=== PATIENT | female | born 1980 | race Two or more races ===

== ENCOUNTER 2016-11-15 13:19 | Emergency (ER) | payer BC ==
[2016-11-15 14:12] VITALS: BP 109/75
[2016-11-15] MEDS ORDERED: Ondansetron INJ* 2 MG/ML VIAL IV ONE (15:30)
[2016-11-15] MEDS ORDERED: Pantoprazole IV* 40 MG IV ONE (15:30)
[2016-11-15] MEDS ORDERED: Famotidine IV* 10 MG/ML 2 ML (20 mg) IV SLOW PU ONE (15:30)
--- NOTE | 2016-11-15 15:30 | ED ---
Abdominal Pain/Female - HPI Summary HPI Summary: Pt here w/ acute on chronic epigastric pain. She was dx'd w/ gastritis 10 years ago. Endoscope at that time was normal. She took zantac for years with good relief until sx worsened. 6 years ago, she had another endoscopy which revealed mild gastritis, neg ulcer, neg h. pylori. She was started on lansoprazole which worked well until the past few months. Her pain is returning in the epigastric area and goes through to her back. She is here today because she has been vomiting over the past week almost every time she eats or drinks. She has been sipping water the past 4 days w/ nausea. Last vomited yesterday. Has tried zantac and zofran but vomited. Was able to keep lansoprazole down but did not help pain. She denies use of NSAID's, acidic foods/beverages, smoking, drinking ETOH. She does enjoy spicy food. Currently, all food and beverages are causing her pain. She denies hematochezia, dark/tarry stools, hematemesis, throat pain, chest pain, SOB. 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) Pain Intensity: 0 Allergies/Adverse Reactions: Allergies Allergy/AdvReac Type Severity Reaction Status Date / Time Esomeprazole [From Nexium] Allergy Hives Verified 11/15/16 14:13 PMH/Surg Hx/FS Hx/Imm Hx Previously Healthy: Yes Endocrine/Hematology History: Denies: Hx Anticoagulant Therapy, Hx Blood Disorders, Hx Unexplained Bleeding GI History: Reports: Hx Gastroesophageal Reflux Disease Denies: Hx Cirrhosis, Hx Crohn's Disease, Hx Diverticulosis, Hx Gall Bladder Disease, Hx Gastrointestinal Bleed, Hx Hiatal Hernia, Hx Irritable Bowel Infectious Disease History: Yes Infectious Disease History: Denies: Traveled Outside the [place] in Last 30 Days - Family History Known Family History: Positive: None - Social History Lives: With Family Alcohol Use: None Hx Substance Use: No Substance Use Type: Reports: None Hx Tobacco Use: No Smoking Status (MU): Never Smoked Tobacco Review of Systems Negative: Fever, Chills Negative: Sore Throat Negative: Chest Pain Negative: Shortness Of Breath Positive: Abdominal Pain, Vomiting, Nausea. Negative: Diarrhea Positive: no symptoms reported Negative: Bruising Neurological: Negative Negative: Headache, Weakness, Paresthesia Psychological: Normal All Other Systems Reviewed And Are Negative: Yes Physical Exam Triage Information Reviewed: Yes Vital Signs On Initial Exam: Initial Vitals Temp Pulse Resp BP Pulse Ox 98.1 F 92 18 97/66 99 11/15/16 13:49 11/15/16 13:49 11/15/16 13:49 11/15/16 13:49 11/15/16 13:49 Vital Signs Reviewed: Yes Appearance: Positive: Well-Nourished - mild pallor, Pain Distress - mild Skin: Positive: Warm, Dry Head/Face: Positive: Normal Head/Face Inspection Eyes: Positive: Normal, EOMI, Conjunctiva Clear - anicteric sclera ENT: Positive: Normal ENT inspection, Hearing grossly normal, Pharynx normal - lips are somewhat dry Respiratory/Lung Sounds: Positive: Clear to Auscultation, Breath Sounds Present. Negative: Rales, Rhonchi, Wheezes Cardiovascular: Positive: Normal, RRR, Pulses are Symmetrical in both Upper and Lower Extremities, S1, S2. Negative: Murmur, Rub Abdomen Description: Positive: No Organomegaly, Soft, Other: - epigastric TTP - all other areas are soft and NTTP Bowel Sounds: Positive: Present Musculoskeletal: Positive: Normal, Strength/ROM Intact Neurological: Positive: Normal, Sensory/Motor Intact, Alert, Oriented to Person Place, Time, CN Intact II-III Psychiatric: Positive: Normal - Alayna Coma Scale Coma Scale Total: 15 Diagnostics - Vital Signs Vital Signs Temp Pulse Resp BP Pulse Ox 11/15/16 14:01 98.7 F 87 20 109/75 96 11/15/16 13:49 98.1 F 92 18 97/66 99 - Laboratory Result Diagrams: 11/15/16 15:45 11/15/16 15:45 Lab Statement: Any lab studies that have been ordered have been reviewed, and results considered in the medical decision making process. Re-Evaluation - Re-Evaluation First Eval Change: Improved - nausea and pain improved a great deal - pt smiling, laughing Abdominal Pain Fem Course/Dx - Course Course Of Treatment: Pt presents w/ epigastric pain, worsening over past few months and new onset vomiting past 1 week. Pain and nausea improved today w/ IVF , zofran, protonix and famotidine. She tolerated ice cream PO prior to d/c - this was offered as glucose was low on CMP. D/c'd home w/ PPI and H2 capri. Pt will be referred to GI within the next 2 weeks for follow-up (ie. endoscopy, med f/u, etc). Reviewed danger s/sx of when to return. Also reviewed bland diet which pt encouraged to eat until seen by GI for further guidance. - Diagnoses Provider Diagnoses: Gastritis Discharge - Discharge Plan Condition: Stable Disposition: HOME Prescriptions: Famotidine TAB* [Pepcid 20 MG TAB*] 40 mg PO BEDTIME #14 tab Ondansetron ODT TAB* [Zofran 4 MG Odt TAB*] 8 mg PO Q8H PRN #9 tab.odt PRN Reason: Nausea Pantoprazole TAB (NF) [Protonix TAB (NF)] 40 mg PO BID #28 tab Patient Education Materials: Gastritis (ED), Diet for Stomach Ulcers and Gastritis (ED) Referrals: Non Staff,Doctor [Primary Care Provider] - [facility] [place] PHYSICIAN REFERRAL [Outside] Jignesh Sawyer MD [Medical Doctor] - Additional Instructions: Follow-up with GI within next 2 weeks. Call Friday to schedule appointment. Establish with PCP for general medical care. A referral line has been provided for you today. Also call Friday to find a provider and schedule an appointment for new patient visit. Take medications as directed and avoid high risk foods, meds as described in handouts. *If you develop return of pain, bloody vomiting, bloody stool, fever, or intractable vomiting, hard abdomen, return to ED
[2016-11-15] MEDS ORDERED: Ondansetron INJ* 2 MG/ML VIAL ONE (15:31)
[2016-11-15] MEDS ORDERED: Pantoprazole IV* 40 MG ONE (15:31)
[2016-11-15] MEDS ORDERED: Famotidine IV* 10 MG/ML 2 ML (20 mg) ONE (15:31)
[2016-11-15] MEDS ORDERED: NS 0.9% 1000 ML* 1,000 ML IV ONE (15:32)
[2016-11-15 15:59] LABS: Hematocrit 36 % (35-47); Hemoglobin 12.1 g/dl (12.0-16.0); Mean Corpuscular HGB Conc 34 g/dl (31-36); Mean Corpuscular Hemoglobin 28 pg (27-31); Mean Corpuscular Volume 84 fL (80-97); Mean Platelet Volume 8 um3 (7.4-10.4); Red Blood Count 4.28 10^6/ul (4.0-5.4); Red Cell Distribution Width 14 % (10.5-15); White Blood Count 6.5 10^3/ul (3.5-10.8)
[2016-11-15 16:14] LABS: Albumin 4.2 g/dL (3.2-5.2); BUN/Creatinine Ratio 11.1 (8-20); C Reactive Protein 30.39 mg/L (< 5.00); EGFR Non-African American 105.8 (>60); Globulin 3.3 g/dL (2-4); Potassium 3.8 mmol/L (3.5-5.0); Total Bilirubin 0.9 mg/dL (0.2-1.0); Total Protein 7.5 g/dL (6.4-8.9)
--- NOTE | 2016-11-15 18:23 | ED ---
Janice, Beverley Rose, tioed for Edwardo Jerez MD on 11/15/16 at 1753 . Progress - Progress Note Progress Note: 17:52 - Dr. Jerez spoke with pt. She vomited after trying liquids but is now doing much better. She wants to go home; pt stable and cleared to leave with dx of gastroenteritis. Re-Evaluation - Re-Evaluation First Eval Change: Improved - nausea and pain improved a great deal -pt smiling Course/Dx - Course Course Of Treatment: Pt presents w/ epigastric pain, worsening over past few months and new onset vomiting past 1 week. Pain and nausea improved w/ IVF, zofran, protonix and famotidine. She tolerated ice cream PO prior to d/c as glucose was low on CMP. Pt will be referred to GI within the next 2 weeks for follow-up (ie. endoscopy, med f/u, etc). Reviewed danger s/sx of when to return. Also reviewed benjamin of bland diet until seen by GI for further guidance. - Diagnoses Provider Diagnoses: Gastritis The documentation as recorded by the Doctor evans Tahera accurately reflects the service I personally performed and the decisions made by me, Edwardo Jerez MD.
== END 2016-11-15 17:56 | disposition home or self-care (01) ==
LOC: ED 13:19
DX: K29.70 Gastritis, unspecified, without bleeding (principal)
CPT/HCPCS: 36415; 80053; 83605; 83690; 85025; 85610; 85730; 86140; 86703; 96365; 96375; 96376; 99283; J2405

== ENCOUNTER 2016-11-19 11:14 | Emergency (ER) | payer BC ==
[2016-11-19] MEDS: NS 0.9% 1000 ML* 1,000 ML IV ONE ×2 (11:53→12:58)
[2016-11-19 12:08] LABS: Hematocrit 36 % (35-47); Mean Corpuscular HGB Conc 33 g/dl (31-36); Mean Corpuscular Hemoglobin 28 pg (27-31); Mean Corpuscular Volume 84 fL (80-97); Mean Platelet Volume 8 um3 (7.4-10.4); Red Blood Count 4.31 10^6/ul (4.0-5.4); Red Cell Distribution Width 14 % (10.5-15); White Blood Count 6.2 10^3/ul (3.5-10.8)
[2016-11-19 12:27] LABS: Albumin 4.3 g/dL (3.2-5.2); BUN/Creatinine Ratio 12.9 (8-20); Calcium 9.1 mg/dL (8.6-10.3); EGFR African American 138.5 (>60); EGFR Non-African American 107.7 (>60); Potassium 3.6 mmol/L (3.5-5.0); Total Bilirubin 0.7 mg/dL (0.2-1.0); Total Protein 7.3 g/dL (6.4-8.9)
[2016-11-19] MEDS ORDERED: Ondansetron INJ* 2 MG/ML VIAL ONE (12:56)
[2016-11-19] MEDS ORDERED: Ondansetron INJ* 2 MG/ML VIAL IV ONE (12:57)
--- NOTE | 2016-11-19 13:16 | RAD ---
INDICATION: Vomiting. COMPARISON: There are no prior studies available for comparison. TECHNIQUE: Supine and upright views of the abdomen were obtained. FINDINGS: The small bowel and colon appear nondistended. No free intraperitoneal air is seen. There is a focal large peripherally calcified structure which projects over the pelvis centered to the right of the midline measuring 3.0 x 3.5 cm in size possibly representing a calcified leiomyoma. IMPRESSION: 1. NO EVIDENCE FOR OBSTRUCTION. 2. CALCIFICATION PROJECTS OVER THE PELVIS POSSIBLY REPRESENTING A CALCIFIED LEIOMYOMA.
[2016-11-19] MEDS ORDERED: Iohexol 300* (CONTRAST) 10 ML SDV IV ONE (14:16)
[2016-11-19 14:19] LABS: UR Preg Internal Control QC Line Present
[2016-11-19 14:21] LABS: Manual Entry Verification HAN0055
[2016-11-19 14:29] LABS: Urine Bacteria Absent (Absent); Urine Bilirubin Negative (Negative); Urine Glucose Negative (Negative); Urine Nitrite Negative (Negative)
--- NOTE | 2016-11-19 14:51 | RAD ---
CLINICAL HISTORY: Vomiting, weight loss COMPARISON: None TECHNIQUE: Multiple contiguous axial CT scans were obtained of the abdomen and pelvis after the administration of intravenous contrast. Coronal and sagittal multiplanar reformations are submitted for review. Oral contrast was administered. Delayed images were obtained through the abdomen and pelvis. FINDINGS: LUNG BASES: The lung bases are clear. LIVER: The liver is normal in shape, size, contour, and attenuation. BILE DUCTS: There is no intrahepatic or extrahepatic biliary dilatation. GALLBLADDER: The gallbladder is normal, without pericholecystic inflammatory change. PANCREAS: The pancreas is normal, without mass or ductal dilatation. SPLEEN: Normal in size and appearance. UPPER GI TRACT: Evaluation of the gastrointestinal tract is limited by incomplete gastric distention. The upper GI tract is unremarkable. SMALL BOWEL AND MESENTERY: The small bowel is normal in contour, course, and caliber. There is no obstruction or dilatation. COLON: The colon is normal in contour, course, caliber. There is no pericolonic inflammatory change. There is a tubular, vermiform, hollow viscus that is blind ending, and originates from the cecum, consistent with a normal appendix. There is no periappendiceal inflammatory change. ADRENALS: Normal bilaterally. KIDNEYS: The kidneys are normal in shape, size, contour, and axis. There is no hydronephrosis or nephrolithiasis. BLADDER: The bladder is smooth in contour. PELVIC ORGANS: There is a calcific uterine fibroid. AORTA: The aorta is normal. IVC: Unremarkable LYMPH NODES: There is no lymphadenopathy by size criteria. ABDOMINAL WALL: There is no evidence for abdominal wall hernia. BONES AND SOFT TISSUES: Unremarkable OTHER: None IMPRESSION: FIBROID UTERUS, OTHERWISE UNREMARKABLE CT OF THE ABDOMEN AND PELVIS
[2016-11-19 15:14] LABS: C Reactive Protein 13.59 mg/L (< 5.00)
[2016-11-19 16:43] VITALS: BP 111/68
--- NOTE | 2016-11-19 18:41 | ED ---
Ashley Camacho Anna, scribed for Roniti,Jamar Dee MD on 11/19/16 at 1129 . GI/ HPI - HPI Summary HPI Summary: Patient is a 36 y/o female coming to [facility] presenting with acute on chronic intermittent emesis that worsened one week ago. The emesis has been increasing in frequency over the last month, most acutely in the last week. The emesis is both food and liquids, including water. She has had little urination and one BM in the last week, which is unusual for her. She has no pain associated with the emesis. She has unintentionally lost 13 lbs in the last month, mostly in the last week. She has no nausea when she is not eating. The symptoms were not alleviated by the use of Zofran, Protonix, and Famotidine, which she has been taking as were prescribed when she was seen at [facility] four days ago. The patient was referred to a GI clinic and has scheduled an appointment as soon as was available, currently 35 days. Denies previous surgeries, HTN, DM. She has chronic gastritis and had endoscopies 15 years ago and 6 years ago, completed in [facility] with no acute findings other than mild gastritis and GERD. - History of Current Complaint Chief Complaint: EDGeneral Time Seen by Provider: 11/19/16 11:26 Stated Complaint: VOMITING, 13 POUNDS LOST IN A MONTH Hx Obtained From: Patient, Family/Security Lead - Accompanied by Onset/Duration: Started Weeks Ago, Still Present, Worse Since - one week ago Timing: Intermittent Severity: Worse Since: - one week ago Current Severity: Moderate Pain Intensity: 0 - /10 - Allergy/Home Medications Allergies/Adverse Reactions: Allergies Allergy/AdvReac Type Severity Reaction Status Date / Time Esomeprazole [From Nexium] Allergy Hives Verified 11/15/16 14:13 Home Medications: Home Medications Imiquimod [Zyclara Pump] 5 % TOPICAL .3 TIMES WEEKLY 11/19/16 [History Confirmed 11/19/16] PMH/Surg Hx/FS Hx/Imm Hx Endocrine/Hematology History: Denies: Hx Anticoagulant Therapy, Hx Blood Disorders, Hx Unexplained Bleeding GI History: Reports: Hx Gastroesophageal Reflux Disease, Other GI Disorders - chronic gastritis Denies: Hx Cirrhosis, Hx Crohn's Disease, Hx Diverticulosis, Hx Gall Bladder Disease, Hx Gastrointestinal Bleed, Hx Hiatal Hernia, Hx Irritable Bowel Infectious Disease History: Denies: Traveled Outside the [place] in Last 30 Days - Family History Known Family History: Negative: Cardiac Disease, Hypertension, Diabetes - Social History Lives: With Family Alcohol Use: None Hx Substance Use: No Substance Use Type: Reports: None Hx Tobacco Use: No Smoking Status (MU): Never Smoked Tobacco Review of Systems Constitutional: Other - unintentional weight loss Positive: Sore Throat Positive: Vomiting. Negative: Abdominal Pain All Other Systems Reviewed And Are Negative: Yes Physical Exam Triage Information Reviewed: Yes Vital Signs On Initial Exam: Initial Vitals Temp Pulse Resp BP Pulse Ox 97.7 F 85 16 117/77 100 11/19/16 11:18 11/19/16 11:18 11/19/16 11:18 11/19/16 11:18 11/19/16 11:18 Vital Signs Reviewed: Yes Appearance: Positive: Well-Appearing, No Pain Distress, Well-Nourished Skin: Positive: Warm, Skin Color Reflects Adequate Perfusion, Dry Head/Face: Positive: Normal Head/Face Inspection Eyes: Positive: EOMI, YIMI, Conjunctiva Clear ENT: Positive: Hearing grossly normal, Pharynx normal Neck: Positive: Supple, Nontender Respiratory/Lung Sounds: Positive: Clear to Auscultation, Breath Sounds Present. Negative: Rales, Rhonchi, Wheezes Cardiovascular: Positive: RRR. Negative: Murmur, Rub Abdomen Description: Positive: Nontender, No Organomegaly, Soft. Negative: Distended, Guarding Bowel Sounds: Positive: Present Musculoskeletal: Positive: Strength/ROM Intact Neurological: Positive: Sensory/Motor Intact, Alert, Oriented to Person Place, Time, Normal Gait. Negative: Cerebellar Dysfunction Psychiatric: Positive: Affect/Mood Appropriate Diagnostics - Vital Signs Vital Signs Temp Pulse Resp BP Pulse Ox 11/19/16 11:18 97.7 F 85 16 117/77 100 - Laboratory Lab Results: Lab Results 11/19/16 11/19/16 11/19/16 Range/Units 11:55 11:55 11:55 WBC 6.2 (3.5-10.8) 10^3/ul RBC 4.31 (4.0-5.4) 10^6/ul Hgb 12.0 (12.0-16.0) g/dl Hct 36 (35-47) % MCV 84 (80-97) fL MCH 28 (27-31) pg MCHC 33 (31-36) g/dl RDW 14 (10.5-15) % Plt Count 242 (150-450) 10^3/ul MPV 8 (7.4-10.4) um3 Sodium 136 (133-145) mmol/L Potassium 3.6 (3.5-5.0) mmol/L Chloride 105 (101-111) mmol/L Carbon Dioxide 25 (22-32) mmol/L Anion Gap 6 (2-11) mmol/L BUN 8 (6-24) mg/dL Creatinine 0.62 (0.51-0.95) mg/dL Est GFR ( Amer) 138.5 (>60) Est GFR (Non-Af Amer) 107.7 (>60) BUN/Creatinine Ratio 12.9 (8-20) Glucose 92 (70-100) mg/dL Lactic Acid 0.6 (0.5-2.0) mmol/L Calcium 9.1 (8.6-10.3) mg/dL Total Bilirubin 0.70 (0.2-1.0) mg/dL AST 12 L (13-39) U/L ALT 12 (7-52) U/L Alkaline Phosphatase 55 (34-104) U/L C-Reactive Protein 13.59 H (< 5.00) mg/L Total Protein 7.3 (6.4-8.9) g/dL Albumin 4.3 (3.2-5.2) g/dL Globulin 3.0 (2-4) g/dL Albumin/Globulin Ratio 1.4 (1-3) Lipase 18 (11.0-82.0) U/L Urine Color Urine Appearance Urine pH (5-9) Ur Specific Sidney (1.010-1.030) Urine Protein (Negative) Urine Ketones (Negative) Urine Blood (Negative) Urine Nitrate (Negative) Urine Bilirubin (Negative) Urine Urobilinogen (Negative) Ur Leukocyte Esterase (Negative) Urine WBC (Auto) (Absent) Urine RBC (Auto) (Absent) Ur Squamous Epith Cells (Absent) Urine Bacteria (Absent) Urine Glucose (Negative) Urine Ascorbic Acid Urine Test (Negative) 11/19/16 Range/Units 14:05 WBC (3.5-10.8) 10^3/ul RBC (4.0-5.4) 10^6/ul Hgb (12.0-16.0) g/dl Hct (35-47) % MCV (80-97) fL MCH (27-31) pg MCHC (31-36) g/dl RDW (10.5-15) % Plt Count (150-450) 10^3/ul MPV (7.4-10.4) um3 Sodium (133-145) mmol/L Potassium (3.5-5.0) mmol/L Chloride (101-111) mmol/L Carbon Dioxide (22-32) mmol/L Anion Gap (2-11) mmol/L BUN (6-24) mg/dL Creatinine (0.51-0.95) mg/dL Est GFR ( Amer) (>60) Est GFR (Non-Af Amer) (>60) BUN/Creatinine Ratio (8-20) Glucose (70-100) mg/dL Lactic Acid (0.5-2.0) mmol/L Calcium (8.6-10.3) mg/dL Total Bilirubin (0.2-1.0) mg/dL AST (13-39) U/L ALT (7-52) U/L Alkaline Phosphatase (34-104) U/L C-Reactive Protein (< 5.00) mg/L Total Protein (6.4-8.9) g/dL Albumin (3.2-5.2) g/dL Globulin (2-4) g/dL Albumin/Globulin Ratio (1-3) Lipase (11.0-82.0) U/L Urine Color Straw Urine Appearance Clear Urine pH 7.0 (5-9) Ur Specific Sidney 1.003 L (1.010-1.030) Urine Protein Negative (Negative) Urine Ketones Trace H (Negative) Urine Blood 1+ H (Negative) Urine Nitrate Negative (Negative) Urine Bilirubin Negative (Negative) Urine Urobilinogen Negative (Negative) Ur Leukocyte Esterase Negative (Negative) Urine WBC (Auto) Absent (Absent) Urine RBC (Auto) 1+(3-5/hpf) H (Absent) Ur Squamous Epith Cells Present H (Absent) Urine Bacteria Absent (Absent) Urine Glucose Negative (Negative) Urine Ascorbic Acid Not Reportable Urine Test Negative (Negative) Result Diagrams: 11/19/16 11:55 11/19/16 11:55 Lab Statement: Any lab studies that have been ordered have been reviewed, and results considered in the medical decision making process. - Radiology abd XR Xray Interpretation: Positive (See Comments) Radiology Interpretation Completed By: Radiologist - IMPRESSION: 1. NO EVIDENCE FOR OBSTRUCTION. 2. CALCIFICATION PROJECTS OVER THE PELVIS POSSIBLY REPRESENTING A CALCIFIED LEIOMYOMA. - CT CT abd/pel CT Interpretation: Positive (See Comments) CT Interpretation Completed By: Radiologist - IMPRESSION: FIBROID UTERUS, OTHERWISE UNREMARKABLE CT OF THE ABDOMEN AND PELVIS Re-Evaluation - Re-Evaluation First Eval Re-Evaluation Time: 12:28 Change: Unchanged Comment: Discussed plan for imaging following conversation with Dr. Pool. Patient and family are agreeable with plan. GIGU Course/Dx - Course Assessment/Plan: Patient is a 36 y/o female coming to [facility] presenting with acute on chronic intermittent emesis that began one week ago. The emesis has been increasing in frequency over the last month, most acutely in the last week. The emesis is exacerbated by food and liquids, including water. She has had little urination and one BM in the last week, which is unusual for her. She has a mild sore throat accompanied by some nasal congestion. She has no pain associated with the emesis. She has unintentionally lost 13 lbs in the last month, mostly in the last week. She has no nausea when she is not eating. The symptoms were not alleviated by the use of Zofran, Protonix, and Famotidine, which she has been taking as were prescribed when she was seen at [facility] four days ago. The patient was referred to a GI clinic and has scheduled an appointment as soon as was available, currently in 35 days. Denies previous surgeries, HTN, DM. She has chronic gastritis and had endoscopies 15 years ago and 6 years ago, completed in [place] with no acute findings other than mild gastritis. Her OBGYN raised the concern of endometriosis because of a history of severely painful periods, which has not been investigated at this time. Patient was given fluids and Famotidine in the ED course. Discussed patient care with Dr. Pool (GI doctor), who recommended XR with two views and CT. Labs WNL except for CRP of 13.59. Abd XR reveals no evidence for obstruction but calcification projecting over the pelvis that possibly represents a calcified leiomyoma. CT reveals uterine fibroid but is otherwise unremarkable. Dr. Pool will place orders for labs to be drawn 11/22/2016. Patient will be discharged home with follow up from Dr. Pool and Dr. Moon. - Diagnoses Provider Diagnoses: Nausea & vomiting, GERD (gastroesophageal reflux disease) - Physician Notifications Discussed Care Of Patient With: Dr. Sawyer' office (GI doctor) at 1145. They recommend discussing the case with Dr. Pool, who is currently in the endoscopy suite. Dr. Pool (GI doctor) at 1215. Dr. Pool recommends two- view XR of abd in addition to CT with IV and oral contrast. Will intervene pending images. Dr. Pool (GI doctor) at 1446. Updated regarding XR results. Pending CT results. Will add tests for lipase and CRP. Dr. Pool (GI doctor) at 1550. He was able to see the patient and discuss care. He will place orders for labs to be drawn 11/22/2016. Patient will be discharged home. Discharge - Discharge Plan Condition: Stable Disposition: HOME Patient Education Materials: Acute Nausea and Vomiting (ED) Referrals: Lillie Moon MD [Medical Doctor] - Quique Pool MD [Medical Doctor] - Additional Instructions: Follow up for labs on 11/22/2016. Return to the Emergency Department for new or worsening symptoms. The documentation as recorded by the Ashley evans Anna accurately reflects the service I personally performed and the decisions made by , Jamar Giang MD.
--- NOTE | 2016-11-19 21:56 | CONS ---
GASTROENTEROLOGY CONSULT: DATE: 11/19/16 REFERRING PHYSICIANS: [facility] Attending, Lillie Moon CMA REASON FOR CONSULT: Repeated nausea and vomiting in a woman with a history of gastrointestinal distress going back at least to 1999 when she was living in [place]. 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 The history is given predominantly by her , though the patient listens and sometimes will answer in short phrases as she appears to understand Syriac fairly well, but prefers to have her do the actual speaking. This winter she apparently has been developing nausea and vomiting about an hour after meals, sometimes two. She may develop a little bit of epigastric pain with this. She actually has not had any pain in the last few days, although the vomiting has continued. Postprandial distress and vomiting seemed to start about a month ago and became more acute about a week ago. She has a long-standing pattern of getting some epigastric pain from time to time for which she will take a Zantac or Prilosec, typically as a single dose. There is no particular correlation with that. She has had stomach symptoms for many years. In 1999, in [place], while her was in medical school, she had pain and some vomiting. Upper endoscopy at that time was said to be normal. Her cannot give a specific diagnosis but she was treated with Zantac and the symptom faded. In 2010, with similar symptoms, upper endoscopy in [facility] showed mild gastritis and helicobacter assessment was negative. She was treated with Protonix, again the symptom fading. Following that, she is described as being on "PPIs off and on for a while." It is not clear how that may differ from the more recent description of once a month. She came to the emergency room on November 15 with these symptoms and at that time, her CBC was normal with hemoglobin 12.1, hematocrit 36, white count 6.5, BUN 8, creatinine 0.7. She was sent home on Protonix on a regular basis and she does take it in the morning. Symptoms persisted. They scheduled an outpatient GI evaluation, which was not due to take place for a month. She came to the emergency room today. Again, vital signs were normal, labs normal, BUN again under 10, creatinine unchanged. CRP which had been elevated at 30 was now 13. There has not been any diarrhea, fever or rectal bleeding. She had a herpes labialis outbreak a month or 6 weeks ago, which she has had before. Her wondered about that extending into the esophagus. She is just pending a 6-day typical menstrual cycle today. She had a test yesterday, her brought her, and that was negative. She is not taking any supplements, vitamins, etc. She took Aleve a couple of months ago for a day or two for some joint pain, but thought she had epigastric pain for a day and gave that up. There is no family history of gastrointestinal problems. She has never had any surgery. PAST MEDICAL HISTORY: 1. Infertility workup - 2 daughters via IVF, ages 11 and 4. 2. Factor V Leiden - diagnosed with the infertility workup. She has never had any thromboembolic phenomena and there is no history of that in the family. MEDICATIONS: At home, just what was prescribed in the ER 4d ago, pantoprazole 40, famotidine 20, Zofran 4. 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 He is now with [employer] in [place] ([phone], Talat Davey ). She has 2 daughters, 2005 and 2012, said to be healthy. A DARIUSZ is training in FP in [place]. REVIEW OF SYSTEMS: No history of cardiopulmonary disease, palpitations, syncope. She did have some gastrointestinal upset about a month ago for 48 hrs that was said to have gone through the whole family. There is no history of headaches, skin disorder, rash, or recent fracture. PHYSICAL EXAM: She is a healthy-appearing young woman, in a gurney in the emergency room wearing a headscarf. She appears quite calm, shy, smiling somewhat nervously. HEENT exam in a limited basis is normal. She has no adenopathy. She was examined with her in the room ( after permission) and a nurse in the room. Her lungs are clear and heart sounds are regular. The abdomen is symmetric without scars, normal bowel sounds, nondistended, soft , and nontender. Extremities show no edema. Neurologic is grossly nonfocal. DIAGNOSTIC STUDIES: Radiologic studies - two-views of the abdomen unremarkable. CT scan - with 2 cups of contrast, which had gone through to the colon. Per nursing report, contrast was ingested readily and was not vomited. Radiologic report is benign, apart from uterine fibroids. On review, the pancreas does indeed appear unremarkable with a nondilated duct. Stomach is nondilated. IMPRESSION: This 36-year-old woman with many years of dyspeptic-type gastrointestinal distress manifested mostly by vomiting with some component of epigastric distress probably has a background of being predisposed to gastroesophageal reflux disease with flares of symptomatology brought on by other varied illnesses. At this time, it is unclear what the current flare is stimulated by. The CRP was elevated, but is now lower. 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 There is no obvious stressor; or the patient does not mention any in an interview that is provided through her . She has plans to get a primary physician and identified Dr. Moon by name and this information will be forwarded to her as definitive management of dyspepsia frequently requires an in-depth knowledge of the patient's circumstances. For the moment she is encouraged to take Protonix in AM and eat small low fat meals 5-6 a day. [id number]/[facility] #: [id number] THA
== END 2016-11-19 16:42 | disposition home or self-care (01) ==
LOC: ED 11:14
DX: R11.2 Nausea with vomiting, unspecified (principal); K21.9 Gastro-esophageal reflux disease without esophagitis; D25.9 Leiomyoma of uterus, unspecified; K29.70 Gastritis, unspecified, without bleeding
CPT/HCPCS: 36415; 74020; 74177; 80053; 81003; 81015; 81025; 83605; 83690; 85027; 86140; 96361; 96374; 96375; 99283; J2405; Q9967

== ENCOUNTER 2017-12-19 10:33 | Emergency (ER) | payer BC ==
--- NOTE | 2017-12-19 10:39 | UC ---
Lower Extremity/Ankle HPI - HPI Summary HPI Summary: 37 yo female presents accompanied by with complaints of left knee pain and cramping that began yesterday morning. Seems worse today. Pt tells me that her sisters have been dx'd with Factor 5 and she is worried about a blood clot. She is able to bear weight, but has significant pain. She is also a practicing anabaptism and ramadan started a few days ago - admits that she has not been drinking enough water to prepare her body for the fast. Denies numbness or tingling or injury. - History of Current Complaint Stated Complaint: LEG PAIN Time Seen by Provider: 12/19/17 10:39 Hx Obtained From: Patient Onset/Duration: Sudden Onset Severity Initially: Moderate Severity Currently: Moderate Pain Intensity: 7 Pain Scale Used: 0-10 Numeric Aggravating Factor(s): Standing, Ambulation Alleviating Factor(s): Rest, Elevation Able to Bear Weight: Yes - Allergies/Home Medications Allergies/Adverse Reactions: Allergies Allergy/AdvReac Type Severity Reaction Status Date / Time esomeprazole [From Nexium] Allergy Shortness Verified 12/19/17 10:41 of Breath Home Medications: Home Medications NK [No Home Medications Reported] 12/19/17 [History Confirmed 12/19/17] PMH/Surg Hx/FS Hx/Imm Hx - Additional Past Medical History Additional PMH: None Previously Healthy: Yes GI/ History: Gastroesophageal Reflux Other History Of: Negative For: Anticoagulant Therapy - Surgical History Surgical History: None - Family History Known Family History: Positive: None Negative: Cardiac Disease, Hypertension, Diabetes - Social History Lives: With Family Alcohol Use: None Substance Use Type: None Smoking Status (MU): Never Smoked Tobacco Review of Systems Constitutional: Negative Skin: Negative Respiratory: Negative Cardiovascular: Negative Gastrointestinal: Negative Neurovascular: Negative Musculoskeletal: Other: - Left posterior knee pain Neurological: Negative Psychological: Negative All Other Systems Reviewed And Are Negative: Yes Physical Exam - Summary Physical Exam Summary: GENERAL: NAD. WDWN. No pain distress. SKIN: No rashes, sores, lesions, or open wounds. NECK: Supple. Nontender. No lymphadenopathy. CHEST: No accessory muscle use. Breathing comfortably and in no distress. CV: RRR. Without m/r/g. Pulses intact popliteal, PT, and DP. Brisk cap refill. MSK: Left knee: Mild posterior TTP. Pain posterior with full extension. Strength 5/5. No edema or obvious bony deformities. No patella apprehension. Negative Clay, A/P drawer, Janes, and varus/valgus stress. Negative Nehemias sign. LEFT CALF: NTTP. No edema or masses. NEURO: Alert. Sensations intact and symmetric B/L LEs PSYCH: Age appropriate behavior. Triage Information Reviewed: Yes Lower Extremity Course/Dx - Course Course Of Treatment: US: IMPRESSION: 1. NO LEFT LOWER EXTREMITY DEEP VEIN THROMBOSIS. 2. ESPINOZA'S CYST. Suspect muscle cramp due to decreased fluid intake and restoration fasting. Espinoza's cyst could also play a role in her discomfort. - Differential Dx/Diagnosis Provider Diagnoses: Muscle cramp left leg. Espinoza's cyst left knee Discharge - Sign-Out/Discharge Documenting (check all that apply): Discharge/Admit/Transfer - Discharge Plan Condition: Stable Disposition: HOME Patient Education Materials: Bakers Cyst (ED) Referrals: Lillie Moon MD [Primary Care Provider] - Batsheva Corona MD [Medical Doctor] - If Needed Additional Instructions: If you develop a fever, shortness of breath, chest pain, new or worsening symptoms - please call your PCP or go to the ED. 1) May take ibuprofen or tylenol every 6-8 hours as needed for pain 2) Keep well hydrated! - Billing Disposition and Condition Condition: STABLE Disposition: HOME
[2017-12-19 10:40] VITALS: BP 104/71
--- NOTE | 2017-12-19 11:39 | RAD ---
HISTORY: Posterior knee pain, family history of cardiomegaly COMPARISONS: None relevant TECHNIQUE: Multiple transverse and longitudinal ultrasound images were obtained of the left lower extremity from the level of the common femoral vein inferiorly through to the infrapopliteal veins using grayscale, color Doppler, and spectral Doppler imaging with and without compression and with augmentation. Comparison images were obtained of the contralateral common femoral vein. FINDINGS: VEINS: The venous system of the left lower extremity is compressible throughout its course, with normal flow on color Doppler imaging and normal response to augmentation on spectral Doppler imaging. SOFT TISSUES: Unremarkable. OTHER FINDINGS: There is a complex fluid collection in the popliteal fossa measuring 2.4 x 0.9 x 1.3 cm in size. IMPRESSION: 1. NO LEFT LOWER EXTREMITY DEEP VEIN THROMBOSIS. 2. MCGARRY'S CYST
== END 2017-12-19 11:55 | disposition home or self-care (01) ==
LOC: UCEAST 10:33
DX: R25.2 Cramp and spasm (principal); M71.21 Synovial cyst of popliteal space [Baker], right knee; Z88.8 Allergy status to other drugs, medicaments and biological substances
CPT/HCPCS: 99211; G0463

== ENCOUNTER 2019-10-12 09:05 | Emergency (ER) | payer BC ==
--- OUTSIDE RECORDS SUMMARY | 2019-10-12 09:13 | XMS REPORT | Continuity of Care Document ---
:1980 External Reference #:[id number] Author Name Zenaida Vidales O.D. Address [address] [address] Care Team Providers Name Role Phone Lillie Moon M.D. 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 Onset: 09/24/2019 Hereditary retinal dystrophy Zenaida Vidales O.D. Onset: 09/24/2019 Social History Type Date Description Comments Sex Unknown ETOH Use Denies alcohol use Recreational Drug Use Denies Drug Use Tobacco Use Start: Unknown Patient has never smoked Smoking Status Reviewed: 09/24/19 Patient has never smoked Allergies, Adverse Reactions, Alerts Active Allergies Reaction Severity Comments Date Nexium 09/24/2019 Inactive Allergies NKDA 09/24/2019 Medications Active Medications SIG Qnty Indications Ordering Provider Date Clindamycin Talat Hall M.D. 300mg Capsules Immunizations Description No Information Available Vital Signs Description No Information Available Results Description No Information Available Procedures Description No Information Available Medical Devices Description No Information Available Encounters Description No Information Available Assessments Date Code Description Provider 09/24/2019 H52.223 Regular astigmatism, bilateral Zenaida Vidales O.D. 09/24/2019 H35.50 Unspecified hereditary retinal dystrophy Zenaida Vidales O.D. Plan of Treatment 09/24/2019 - Zenaida Vidales O.D.H52.223 Regular astigmatism, bilateralComments: Smoking can increase the risk of developing or worsening any eye related disease , as well as affect your overall health. If you are a smoker, we strongly recommend that you quit.If you are not a smoker, we strongly recommend that you do not start. Astigmatism is a common vision condition that happens when a person's cornea is not symmetrical. Dr. Vidales has given you a prescription to correct for this.Follow up:1 year You can expect to have your eyes dilated at your next visit. If Dr. Vidales orders any additional testing, it may require extra time. We recommend that you bring sunglasses, as dilation drops often make you light sensitive until they wear off. We always recommend you bring someone to drive you home if you are uncomfortable driving with your eyes dilated. If you have any questions before your next visit, feel free to call our office at .h35.50 Unspecified hereditary retinal dystrophyFollow up:1 month VF 30-2 Functional Status Description No Information Available Mental Status Description No Information Available Referrals Description No Information Available
--- NOTE | 2019-10-12 11:05 | UC ---
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 Pain in Left back as well. No vag d/c, bleeding. No fever /chills. No rash. No dysuria / freq / urg No bowel concerns. Couldn't sleep last night d/t pain. - History of Current Complaint Chief Complaint: UCBackPain Stated Complaint: BACK PAIN Time Seen by Provider: 10/12/19 11:04 Hx Obtained From: Patient Hx Last Menstrual Period: 09/24/19 Pain Intensity: 4 - Allergy/Home Medications Allergies/Adverse Reactions: Allergies Allergy/AdvReac Type Severity Reaction Status Date / Time esomeprazole [From Nexium] Allergy Shortness Verified 10/12/19 09:22 of Breath Home Medications: Home Medications Docosanol 10%* [Abreva 10%*] 1 applic TOPICAL 5ID 7 Days #1 tube 10/12/19 [Rx] PMH/Surg Hx/FS Hx/Imm Hx Previously Healthy: Yes - see hpi Other History Of: Negative For: Anticoagulant Therapy - Surgical History Surgical History: None Surgery Procedure, Year, and Place: DENIES - Family History Known Family History: Positive: None Negative: Cardiac Disease, Hypertension, Diabetes - Social History Alcohol Use: None Substance Use Type: None Smoking Status (MU): Never Smoked Tobacco Review of Systems All Other Systems Reviewed And Are Negative: Yes Constitutional: Positive: Negative Skin: Positive: Negative Eyes: Positive: Negative ENT: Positive: Negative Respiratory: Positive: Negative Cardiovascular: Positive: Negative Gastrointestinal: Positive: Other - see hpi Genitourinary: Positive: Other - see hpi Motor: Positive: Negative Neurovascular: Positive: Negative Musculoskeletal: Positive: Negative Neurological/Mental Status: Positive: Negative Psychological: Positive: Negative Is Patient Immunocompromised?: No Physical Exam Triage Information Reviewed: Yes Appearance: Well-Nourished - sitting up, able to walk, but looks uncomfortable Vital Signs: Initial Vital Signs Temp 98.8 F 10/12/19 09:19 Pulse 75 10/12/19 09:19 Resp 16 10/12/19 09:19 BP 105/70 10/12/19 09:19 Pulse Ox 100 10/12/19 09:19 Vital Signs Reviewed: Yes Eye Exam: Normal ENT Exam: Normal Neck exam: Normal Respiratory Exam: Normal Respiratory: Positive: Chest non-tender, Lungs clear, Normal breath sounds, No respiratory distress, No accessory muscle use Cardiovascular Exam: Normal Cardiovascular: Positive: RRR, Pulses Normal, Brisk Capillary Refill Abdominal Exam: Other - + tender back, flank, and pelvis. No directly reproducible with pressure. abd / pelvis not acute. + bs. Musculoskeletal Exam: Normal Neurological Exam: Normal - nonfocal Psychological Exam: Normal - nad Skin Exam: Normal - no visible or reported rash nondiaphoretic Course/Dx - Course Course Of Treatment: Declines analgesia, took ibuprofen last night. Urine dip noted. Trace L est. UCG neg 12:30 pending u/s report 1:10 reviewed u/s report with Ms. Ramirez. See Foremost for details. 1. Fibroid uterus. 2. echogenic focus of he right ovary measuring 0.7cm, the differential includes a small dermoid cyst. 3. involuting cyst of the left ovary 4. no sonographic features of torsion, please note that partial or intermittent torsion may be sonographically normal Still has a great deal of pain. Sitting up but looks uncomfortable. Diff dx includes abd / renal / other. urine dip neg blood. Will benefit from further evaluation and treatment. Recommend ED. I spoke with Ms. Ramirez, and per her request, I spoke with her (who is a physician) over the phone. 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 Aware to call 911 if worse or new problems. Questions as posed answered to the best of my ability. - Diagnoses Provider Diagnosis: Flank pain, Abdominal pain Discharge ED - Sign-Out/Discharge Documenting (check all that apply): Patient Departure All imaging exams completed and their final reports reviewed: Yes - Discharge Plan Condition: Stable Disposition: HOME-RECOMMEND TO ED Prescriptions: Docosanol 10%* [Abreva 10%*] 1 applic TOPICAL 5ID 7 Days #1 tube Patient Education Materials: Acute Abdominal Pain (DC), Flank Pain (ED) Referrals: Lillie Moon MD [Primary Care Provider] - Additional Instructions: Please go to the Emergency Department. Stop and call 911 if problems in the meantime. Please do not eat prior to going to the Emergency Department. - Billing Disposition and Condition Condition: STABLE Disposition: Home-Recommend to ED
[2019-10-12 12:32] VITALS: BP 114/74
== END 2019-10-12 13:43 | disposition home health service (06) ==
LOC: UCEAST 09:05
DX: R10.9 Unspecified abdominal pain (principal); D25.9 Leiomyoma of uterus, unspecified; N83.292 Other ovarian cyst, left side; Z88.8 Allergy status to other drugs, medicaments and biological substances
CPT/HCPCS: 76830; 81003; 84702; 87086; 99212; G0463

== ENCOUNTER 2019-10-12 17:23 | Emergency (ER) | payer BC ==
[2019-10-12] MEDS ORDERED: NS 0.9% 1000 ML** 1,000 ML IV ONE (20:55)
[2019-10-12] MEDS ORDERED: Ondansetron INJ* 2 MG/ML VIAL IV ONE (20:55)
[2019-10-12] MEDS ORDERED: Ketorolac INJ* 15 MG/ML 1 ML VIAL IV ONE (20:55)
[2019-10-12 21:12] LABS: ABS Eosinophils 0.1 10^3/ul (0-0.6); ABS Lymphocytes 2.5 10^3/ul (1.0-4.8); ABS Monocytes 0.3 10^3/ul (0-0.8); ABS Neutrophils 3.7 10^3/ul (1.5-7.7); Hematocrit 35 % (35-47); Hemoglobin 12.4 g/dL (12.0-16.0); Lymphocyte % 37.7 %; Mean Corpuscular HGB Conc 36 g/dL (31-36); Mean Corpuscular Hemoglobin 30 pg (27-31); Mean Corpuscular Volume 85 fL (80-97); Mean Platelet Volume 7.5 fL (7.4-10.4); Platelet Count 244 10^3/uL (150-450); Red Blood Count 4.09 10^6 /uL (3.70-4.87); Red Cell Distribution Width 13 % (10-15); White Blood Count 6.7 10^3/uL (3.5-10.8)
[2019-10-12 21:30] LABS: ALT 14 U/L (7-52); AST 11 U/L (13-39); Albumin 4.7 g/dL (3.2-5.2); Albumin/Globulin Ratio 1.6 (1-3); Alkaline Phosphatase 57 U/L (34-104); Anion Gap 8 mmol/L (2-11); BUN/Creatinine Ratio 15.2 (8-20); Blood Urea Nitrogen 10 mg/dL (6-24); C Reactive Protein 14.32 mg/L (<8.01); CO2 Carbon Dioxide 26 mmol/L (22-32); Chloride 102 mmol/L (101-111); EGFR African American 119.4 (>60); EGFR Non-African American 98.7 (>60); Glucose 81 mg/dL (70-100); Potassium 3.6 mmol/L (3.5-5.0); Sodium 136 mmol/L (135-145); Total Protein 7.7 g/dL (6.4-8.9)
[2019-10-12 21:35] LABS: HCG Pregnancy < 0.60 mIU/mL
--- NOTE | 2019-10-12 21:38 | ED ---
GI/ HPI - HPI Summary HPI Summary: Patient is a 39 y/o F presenting to [facility] with complaints of left lower back pain, left flank pain and LLQ. She states that the pain onset around 10/07/19. Pain was initially located at LLQ but has since moved to flank and lower back. She reports the pain has been worsening since onset and notes difficulty lying down, sitting, and sleeping secondary to pain. She has been taking ibuprofen without relief. She denies fever, N/V/D. Patient was evaluated at , US was done and the patient was advised to come to [facility] for CT abd/pel. She reports Hx of PCOS. LNMP was 09/24/19. She denies other PMHx, PSHx. Patient is a non- smoker and denies alcohol and substance usage. Home medications and allergies are reviewed. - History of Current Complaint Chief Complaint: EDFlankPain Time Seen by Provider: 10/12/19 20:54 Stated Complaint: BACK/ABD PAIN PER PT Hx Obtained From: Patient Hx Last Menstrual Period: 09/24/19 Onset/Duration: Started Days Ago, Still Present Timing: Lasting Days Current Severity: Moderate Pain Intensity: 5 Location of Pain: LLQ, Flank, Other - back Associated Signs and Symptoms: Positive: Back Pain, Flank Pain, Abdominal Pain. Negative: Nausea, Vomiting, Diarrhea, Fever - Allergy/Home Medications Allergies/Adverse Reactions: Allergies Allergy/AdvReac Type Severity Reaction Status Date / Time esomeprazole [From Nexium] Allergy Shortness Verified 10/12/19 17:31 of Breath Home Medications: Home Medications NK [No Home Medications Reported] 10/12/19 [History Confirmed 10/12/19] PMH/Surg Hx/FS Hx/Imm Hx Endocrine/Hematology History: Denies: Hx Anticoagulant Therapy, Hx Blood Disorders, Hx Diabetes, Hx Thyroid Disease, Hx Unexplained Bleeding Cardiovascular History: Denies: Hx Hypertension Respiratory History: Denies: Hx Asthma, Hx Chronic Obstructive Pulmonary Disease (COPD) GI History: Reports: Hx Gastroesophageal Reflux Disease, Other GI Disorders - chronic gastritis Denies: Hx Cirrhosis, Hx Crohn's Disease, Hx Diverticulosis, Hx Gall Bladder Disease, Hx Gastrointestinal Bleed, Hx Hiatal Hernia, Hx Irritable Bowel, Hx Ulcer - Surgical History Surgery Procedure, Year, and Place: DENIES Infectious Disease History: No Infectious Disease History: Denies: Hx Hepatitis, Hx Human Immunodeficiency Virus (HIV), Traveled Outside the [place] in Last 30 Days - Family History Known Family History: Negative: Cardiac Disease, Hypertension, Diabetes - Social History Alcohol Use: None Hx Substance Use: No Substance Use Type: Reports: None Hx Tobacco Use: No Smoking Status (MU): Never Smoked Tobacco Review of Systems - ROS Summary Review of Systems Summary: Home Medications Medication Instructions Recorded Confirmed Type NK [No Home Medications Reported] 10/12/19 10/12/19 History Negative: Fever Positive: Abdominal Pain. Negative: Vomiting, Diarrhea, Nausea Positive: flank pain Positive: Myalgia - lower left back pain All Other Systems Reviewed And Are Negative: Yes Physical Exam - Summary Physical Exam Summary: General: Well-developed, Well-nourished female. Moderate discomfort at rest. HEENT: Normocephalic, Atraumatic. Eyes: Conjuctiva normal, PERRL. Oropharynx: Clear, mucous membranes moist, (-) exudates. Neck: Soft, FROM, (-) lymphadenopathy, (-) thyromegaly, (-) JVD. Cardiovascular: Normal sinus rhythm, (-) murmur. Lungs: Clear to auscultation bilaterally (-) wheezes, (-) rales, (-) rhonchi. Abdomen: Soft, LLQ tenderness, non-distended, (-) organomegaly, normal bowel sounds. Back: (+) left CVA tenderness Extremities: No edema. Skin: Warm, dry, (-) rash. Neuro: Alert and oriented x3, moves all extremities equally. No ataxia. No gait disturbance. No sensory deficit. Normal strength, normal sensation. Psychiatric: Mood normal, affect normal Triage Information Reviewed: Yes Vital Signs On Initial Exam: Initial Vitals Temp Pulse Resp BP Pulse Ox 97.8 F 80 18 132/84 98 10/12/19 17:27 10/12/19 17:27 10/12/19 17:27 10/12/19 17:27 10/12/19 17:27 Vital Signs Reviewed: Yes Procedures - Sedation Patient Received Moderate/Deep Sedation with Procedure: No Diagnostics - Vital Signs Vital Signs Temp Pulse Resp BP Pulse Ox 10/12/19 19:39 99.1 F 86 18 128/81 100 10/12/19 17:27 97.8 F 80 18 132/84 98 - Laboratory Lab Results: Lab Results 10/12/19 10/12/19 10/12/19 Range/Units 21:03 21:03 21:03 WBC 6.7 (3.5-10.8) 10^3/uL RBC 4.09 (3.70-4.87) 10^6 /uL Hgb 12.4 (12.0-16.0) g/dL Hct 35 (35-47) % MCV 85 (80-97) fL MCH 30 (27-31) pg MCHC 36 (31-36) g/dL RDW 13 (10-15) % Plt Count 244 (150-450) 10^3/uL MPV 7.5 (7.4-10.4) fL Neut % (Auto) 54.7 % Lymph % (Auto) 37.7 % [place] % (Auto) 5.0 % Eos % (Auto) 2.0 % Baso % (Auto) 0.6 % Absolute Neuts (auto) 3.7 (1.5-7.7) 10^3/ul Absolute Lymphs (auto) 2.5 (1.0-4.8) 10^3/ul Absolute Monos (auto) 0.3 (0-0.8) 10^3/ul Absolute Eos (auto) 0.1 (0-0.6) 10^3/ul Absolute Basos (auto) 0.0 (0-0.2) 10^3/ul Absolute Nucleated RBC 0.0 10^3/ul Nucleated RBC % 0.0 Sodium 136 (135-145) mmol/L Potassium 3.6 (3.5-5.0) mmol/L Chloride 102 (101-111) mmol/L Carbon Dioxide 26 (22-32) mmol/L Anion Gap 8 (2-11) mmol/L BUN 10 (6-24) mg/dL Creatinine 0.66 (0.51-0.95) mg/dL Est GFR ( Amer) 119.4 (>60) Est GFR (Non-Af Amer) 98.7 (>60) BUN/Creatinine Ratio 15.2 (8-20) Glucose 81 (70-100) mg/dL Lactic Acid 0.6 (0.5-2.0) mmol/L Calcium 10.0 (8.6-10.3) mg/dL Total Bilirubin 0.80 (0.2-1.0) mg/dL AST 11 L (13-39) U/L ALT 14 (7-52) U/L Alkaline Phosphatase 57 (34-104) U/L C-Reactive Protein 14.32 H (<8.01) mg/L Total Protein 7.7 (6.4-8.9) g/dL Albumin 4.7 (3.2-5.2) g/dL Globulin 3.0 (2-4) g/dL Albumin/Globulin Ratio 1.6 (1-3) Lipase 20 (11.0-82.0) U/L Beta HCG, Quant Pending Result Diagrams: 10/12/19 21:03 10/12/19 21:03 Lab Statement: Any lab studies that have been ordered have been reviewed, and results considered in the medical decision making process. - CT CT ABD/PEL CT Interpretation Completed By: Radiologist Summary of CT Findings: IMPRESSION: 1. No acute findings. 2. No hydronephrosis or nephrolithiasis. No hydroureter. 3 ft. Functional follicle located in in the left adnexa. Most likely a corpus. luteal cyst. No significant pelvic fluid. 4. No bowel obstruction. No colonic diverticulosis. No abnormal mucosal. thickening. THIS REPORT WAS REVIEWED BY ED PHYSICIAN. GIGU Course/Dx - Course Course Of Treatment: 39-year-old female presents from home with left flank pain. She states she's had it for a few days now. Much worse today. She's had no fevers. No vomiting or diarrhea. No urinary complaints. Patient given IV fluids, Toradol and Zofran. CAT scan demonstrates left ovarian cyst. Patient's symptoms improve and she requests discharge. Advised plenty of fluids. Tylenol IV for pain as needed. Follow up PCP. Follow-up sooner for any worsening symptoms. During ED course, patient received fluids, Zofran 4 mg IV, Toradol 15 - Diagnoses Provider Diagnoses: Left ovarian cyst, LLQ pain Discharge ED - Sign-Out/Discharge Documenting (check all that apply): Patient Departure - discharge - Discharge Plan Condition: Stable Disposition: HOME Patient Education Materials: Ovarian Cyst (ED), Abdominal Pain (ED) Referrals: Lillie Moon MD [Primary Care Provider] - 3 Days Additional Instructions: PLEASE RETURN TO ED FOR ANY NEW OR CONCERNING SYMPTOMS. PLEASE FOLLOW UP WITH YOUR PRIMARY CARE PHYSICIAN WITHIN THREE DAYS. - Billing Disposition and Condition Condition: STABLE Disposition: Home - Attestation Statements Document Initiated by Elsa: Yes Documenting Scribe: ANGEL HAAS Provider For Whom Elsa is Documenting (Include Credential): DARNELL HOOKER MD Scribe Attestation: ANGEL Camacho, scribed for DARNELL HOOKER MD on 10/16/19 at 0403. Scribe Documentation Reviewed: Yes Provider Attestation: The documentation as recorded by the ANGEL evans accurately reflects the service I personally performed and the decisions made by me, DARNELL HOOKER MD Status of Scribe Document: Viewed
[2019-10-12] MEDS ORDERED: Iohexol 300* (CONTRAST) 10 ML SDV IV ONE (23:22)
[2019-10-13 00:54] VITALS: BP 128/79
== END 2019-10-13 00:54 | disposition home or self-care (01) ==
LOC: ED 17:23
DX: R10.32 Left lower quadrant pain (principal); N83.202 Unspecified ovarian cyst, left side; R10.84 Generalized abdominal pain; K21.9 Gastro-esophageal reflux disease without esophagitis; Z88.3 Allergy status to other anti-infective agents; M54.9 Dorsalgia, unspecified
CPT/HCPCS: 36415; 74177; 80053; 83605; 83690; 84702; 85025; 86140; 96361; 96374; 96375; 99283; J1885; J2405; Q9967